=== PATIENT | male | born 1980 | race Caucasian/White ===

== ENCOUNTER → 2016-07-05 12:53 | Outpatient (CLI) | payer BC ==
[~2016-07-05 12:53] MED LIST: HYDROCODON-ACE1 EAC7 PO; LYRICA75 MG PO; PROVIGIL100 MG PO; ULTRAM50 MG PO
[2016-08-11 08:22] VITALS: BMI 30.2
== END | disposition home or self-care (01) ==
LOC: D.CT 12:53
DX: R10.11 Right upper quadrant pain (principal); R10.31 Right lower quadrant pain; D72.829 Elevated white blood cell count, unspecified

== ENCOUNTER → 2016-07-22 08:47 | Outpatient (CLI) | payer BC ==
[2016-08-11 08:22] VITALS: BMI 30.2
== END | disposition home or self-care (01) ==
LOC: D.NM 08:47
DX: R10.11 Right upper quadrant pain (principal)

== ENCOUNTER 2016-08-11 06:46 | Day surgery (SDC) | payer BC ==
[~2016-08-11] VITALS: Ht 175.3 cm; Wt 92.5 kg
[~2016-08-11 06:46] MED LIST changes: -HYDROCODON-ACE1 EAC7 PO
[2016-08-11 08:22] VITALS: BP 127/77; Ht 175.3 cm; Wt 92.5 kg
--- NOTE | 2016-08-11 08:28 | NUR ---
0815 NO CHANGES IN HISTORY
[2016-08-11] MEDS ORDERED: HYDROCODON-ACE1 EAC7 PO (11:05)
--- NOTE | 2016-08-11 15:11 | NUR ---
1320--PT VOIDS WITHOUT DIFFICULTY, IV DC'D. SUSAN SOLO 1718--DISCHARGE INSTRUCTIONS GIVEN, PT VERBALIZES UNDERSTANDING. PT OFF UNIT VIA WC. SUSAN SOLO
--- NOTE | 2016-08-11 21:50 | OP ---
PATIENT NAME: HINA ERICKSON MEDICAL RECORD: [id number] :80 LOCATION:D[facility] ADMISSION DATE: SURGEON: JACINTO LARSEN MD DATE OF OPERATION: 08/11/2016 SURGEON: Jacinto Larsen MD PREOPERATIVE DIAGNOSES: 1. Biliary dyskinesia. 2. Right upper quadrant pain. POSTOPERATIVE DIAGNOSES: 1. Biliary dyskinesia. 2. Right upper quadrant pain. PROCEDURE PERFORMED: Laparoscopic cholecystectomy. ANESTHESIA: General. COMPLICATIONS: None. SPECIMENS: Gallbladder. Case was clean contaminated. ESTIMATED BLOOD LOSS: 20 cc. OPERATIVE COURSE: After consent was obtained, the patient was taken to the operating room and placed in the supine position on the operating table. Next, general anesthesia was given via endotracheal intubation after a timeout was performed that confirmed the correct patient and procedure. The abdomen was then prepped and draped in the typical sterile fashion. Local anesthetic was injected just above the umbilicus. A stab incision was made with 11-blade scalpel. Using a 5-mm bladeless optical trocar, the abdomen was entered under direct laparoscopic vision. Adequate pneumoperitoneum was achieved. The abdominal cavity was inspected. No evidence of bowel injury. No evidence of bleeding. The patient was then placed in the steep reverse Trendelenburg position. At this time, all remaining trocars were placed after the administration of local anesthetic, two 5-mm trocars in the right upper quadrant and 11-mm trocar in the subxiphoid position. The fundus of the gallbladder was grasped and retracted cephalad. The infundibulum was grasped and retracted laterally. The peritoneum was incised using electrocautery. Blunt dissection was then performed until the critical view was obtained. The cystic duct lateral, cystic artery medial, liver in the posterior window. Three clips were placed in the proximal cystic duct, 1 clip distal, 2 clips were placed in the proximal cystic artery. The duct and artery were then transected with laparoscopic Metzenbaum scissors. The remaining portion of the gallbladder was then dissected off the liver bed using electrocautery. Once complete, it was grasped with the tenaculum and removed with the 11-mm trocar and sent for permanent pathology. The operative site was then copiously irrigated and suctioned. Careful attention was paid to hemostasis, which was obtained from the liver bed using electrocautery. The area was again copiously irrigated and suctioned. There was no evidence of bowel injury. No evidence of bleeding. No evidence of bile leak. There were [address] in the proximal cystic duct. Two clips were placed in the cystic artery. At this time, the remaining OPERATIVE REPORT [id number] HINA ERICKSON portion of the abdominal cavity was inspected. No evidence of bowel injury. No evidence of bleeding. At this time, all remaining instruments were removed. The abdomen was desufflated. Trocars were removed. Skin was closed with 4-0 Monocryl, Mastisol and Steri-Strips. At the end of the case, all needle and instrument counts were correct. No complications occurred. The patient was extubated and transferred to the PACU in stable condition. TRANSINT:[id number] Voice Confirmation ID: [id number] DOCUMENT ID: [id number] JACINTO LARSEN MD at 2150 CC: [id number] DICTATION DATE: 08/11/16 110 BINDING MACHINE OPERATOR: 08/11/16 1909 [facility] 08/11/16 [facility] [address] [place] [address]
== END 2016-08-11 13:35 | disposition home or self-care (01) ==
LOC: D.OPS 06:46 → D.PAN 09:00 → D.OPS 09:00
DX: K82.8 Other specified diseases of gallbladder (principal); R10.11 Right upper quadrant pain; F17.200 Nicotine dependence, unspecified, uncomplicated; G47.30 Sleep apnea, unspecified